=== PATIENT | female | born 1930 | race Caucasian/White ===

== ENCOUNTER 2017-01-08 09:15 | Emergency (ER) | payer OTHER, BC ==
[~2017-01-08] VITALS: Ht 160 cm; Wt 75.0 kg
[~2017-01-08 09:15] MED LIST: ALDACTONE25 MG PO; ARMD EYE SUPPORT PO; CALCIUM 600 MG1 EACH PO; CITRATE OF MAG296 ML PO; CLOPIDOGREL75 MG PO; COUMADIN,JANTOVE2 MG PO; COUMADIN,JANTOVE4 MG PO; COUMADIN4 MG PO; COUMADIN5 MG PO; DAILY VALUE1 EACH PO; DILTIAZEM 24HR180 MG PO; ENDOCET 5-3251 EACH PO; FLEXERIL10 MG PO; FOSAMAX70 MG PO; GUAIFENESIN WI120 M1 PO; LOPRESSOR50 MG PO; LOVENOX80 MG/0.8 SC; MENTHOL TP; METHIMAZOLE5 MG PO; NITROSTAT0.4 MG SL; POLYETHYLENE GL17 GM PO; PRAVASTATIN SOD10 MG PO; PRAVASTATIN SOD40 MG PO; SPIRONOLACTONE25 MG PO; SYSTANE 0.3-0.1 EACH BOTH EYES; TOPROL XL50 MG PO; TRAMADOL HCL50 MG PO; [UNRECOGNIZED DRUG - OTHER]
[2017-01-08 10:15] LABS: HEMATOCRIT 38.1 % (36.0-46.0); MCH 32.2 PG (29.0-34.0); MCHC 33.1 G/DL (30.0-36.0); MCV 97.4 FL (83-99); MEAN PLAT.VOLUME 9.3 uM^3 (9.5-12.4); PLATELET COUNT 260 K/uL (156-360); RBC DIS.WIDTH-CV 13.5 % (11.8-14.6); RBC DIS.WIDTH-SD 48.5 % (39-53); RED BLOOD COUNT 3.91 M/uL (3.80-5.20); WHITE BLOOD COUNT 6.5 K/uL (4.1-10.2)
[2017-01-08 10:25] LABS: CHLORIDE 105 mEq/L (99-109); POTASSIUM 4.7 mEq/L (3.7-5.4); SODIUM 137 mEq/L (136-147)
[2017-01-08 10:26] LABS: PROTHROMBIN TIME 75.3 SEC (10.2-12.9)
[2017-01-08 10:27] LABS: GLUCOSE 102 mg/dL (70-99)
[2017-01-08 10:29] LABS: ANION GAP 8 MEQ/L (2-14)
[2017-01-08 10:31] LABS: GFR ESTIMATE (CALCULATED) 56 mL/min/
[2017-01-08 10:32] LABS: UREA NITROGEN (BUN) 28 mg/dL (9-23)
[2017-01-08 10:37] LABS: INTER. NORMALIZED RATIO 6.3
[2017-01-08 12:42] VITALS: BP 162/64
== END 2017-01-08 12:43 | disposition home or self-care (01) ==
LOC: EME 09:15
PROVIDERS: Emergency Medicine
DX: D68.9 Coagulation defect, unspecified (principal); I48.91 Unspecified atrial fibrillation; Z79.01 Long term (current) use of anticoagulants; R29.6 Repeated falls; I10 Essential (primary) hypertension; E78.5 Hyperlipidemia, unspecified; I25.2 Old myocardial infarction; Z86.73 Personal history of transient ischemic attack (TIA), and cerebral infarction without residual deficits; Z96.642 Presence of left artificial hip joint; Z87.891 Personal history of nicotine dependence; Z88.0 Allergy status to penicillin
CPT/HCPCS: 80048; 85027; 85610; 99281; 99284

== ENCOUNTER 2017-02-20 11:30 | Inpatient (IN) | payer OTHER, BC ==
[~2017-02-20] VITALS: Ht 162.6 cm; Wt 72.0 kg
[~2017-02-20 11:30] MED LIST changes: -COUMADIN5 MG PO; -DILTIAZEM 24HR180 MG PO; +DILTIAZEM 24HR240 MG PO; +WARFARIN SODIUM4 MG PO
[2017-02-20 12:25] LABS: BASOPHIL COUNT 0.1 K/uL (0-0.1); EOSINOPHIL (%) 0.8 % (0-5); EOSINOPHIL COUNT 0.1 K/uL (0-0.3); HEMATOCRIT 41.4 % (36.0-46.0); IMMATURE GRANULOCYTE (%) 0.3 % (0.0-0.7); INSTRUMENT ABS NEUTROPHIL CT 7.4 K/uL; LYMPHOCYTE COUNT 1.6 K/uL (1.0-2.8); MCH 33.6 PG (29.0-34.0); MCHC 33.3 G/DL (30.0-36.0); MCV 100.7 FL (83-99); MEAN PLAT.VOLUME 10.3 uM^3 (9.5-12.4); MONOCYTE (%) 5.9 % (3-12); MONOCYTE COUNT 0.6 K/uL (0-0.8); NEUTROPHIL (%) 76.1 % (45-76); NEUTROPHIL COUNT 7.4 K/uL (1.8-6.4); PLATELET COUNT 249 K/uL (156-360); RBC DIS.WIDTH-SD 52.3 % (39-53); RED BLOOD COUNT 4.11 M/uL (3.80-5.20); WHITE BLOOD COUNT 9.7 K/uL (4.1-10.2)
[2017-02-20 12:30] LABS: INTER. NORMALIZED RATIO 2.6; PROTHROMBIN TIME 29.4 SEC (10.2-12.9)
[2017-02-20 12:33] LABS: PTT 32.2 SEC (25-37)
[2017-02-20 12:40] LABS: CHLORIDE 106 mEq/L (99-109); POTASSIUM 5.1 mEq/L (3.7-5.4); SODIUM 136 mEq/L (136-147)
[2017-02-20 12:42] LABS: GLUCOSE 134 mg/dL (70-99)
[2017-02-20 12:44] LABS: ANION GAP 13 MEQ/L (2-14); TOTAL BILIRUBIN 0.6 mg/dL (0.0-1.0)
[2017-02-20 12:46] LABS: ALKALINE PHOSPHATASE 103 IU/L (3-129); GFR ESTIMATE (CALCULATED) > 59 mL/min/; TROP-I INTERPRETATION NEGATIVE; TROPONIN-I 0.01 ng/mL (0.0-0.30)
[2017-02-20 12:47] LABS: UREA NITROGEN (BUN) 23 mg/dL (9-23)
[2017-02-20 12:56] LABS: DIGOXIN < 0.3 ng/mL (0.8-2.0)
[2017-02-20] MEDS ORDERED: METOPROLOL TART25 MG PO (13:46)
[2017-02-20] MEDS ORDERED: WARFARIN SODIUM1 MG PO (13:49)
[2017-02-20] MEDS ORDERED: TYLENOL EXTRA500 MG PO (13:52)
[2017-02-20] MEDS ORDERED: ASPIR-LOW81 MG PO (13:52)
[2017-02-20] MEDS ORDERED: PRESERVISION T1 EACH PO (13:53)
[2017-02-20 16:44] LABS: TROP-I INTERPRETATION NEGATIVE; TROPONIN-I < 0.01 ng/mL (0.0-0.30)
[2017-02-20 19:45] VITALS: BP 151/75
[2017-02-20 19:47] VITALS: BP 151/75
[2017-02-20 20:36] LABS: TROP-I INTERPRETATION NEGATIVE; TROPONIN-I < 0.01 ng/mL (0.0-0.30)
[2017-02-20 23:55] VITALS: BP 173/72
[2017-02-21 04:00] VITALS: BP 107/59; BP 141/67
[2017-02-21 05:41] LABS: INTER. NORMALIZED RATIO 2.7; PROTHROMBIN TIME 30.9 SEC (10.2-12.9)
[2017-02-21 08:06] VITALS: BP 148/72
[2017-02-21 11:14] VITALS: BP 148/72
[2017-02-21 16:30] VITALS: BP 144/91
[2017-02-21 20:00] VITALS: BP 170/70
[2017-02-21 23:46] VITALS: BP 156/67
[2017-02-22 04:00] VITALS: BP 175/76
[2017-02-22 05:28] LABS: PROTHROMBIN TIME 22.8 SEC (10.2-12.9)
[2017-02-22 05:36] LABS: CHLORIDE 103 mEq/L (99-109); SODIUM 141 mEq/L (136-147)
[2017-02-22 05:37] LABS: GLUCOSE 104 mg/dL (70-99)
[2017-02-22 05:39] LABS: ANION GAP 12 MEQ/L (2-14)
[2017-02-22 05:41] LABS: GFR ESTIMATE (CALCULATED) > 59 mL/min/
[2017-02-22 05:42] LABS: UREA NITROGEN (BUN) 20 mg/dL (9-23)
[2017-02-22 05:47] LABS: BASOPHIL COUNT 0.1 K/uL (0-0.1); EOSINOPHIL (%) 3.1 % (0-5); EOSINOPHIL COUNT 0.2 K/uL (0-0.3); IMMATURE GRANULOCYTE (%) 0.3 % (0.0-0.7); INSTRUMENT ABS NEUTROPHIL CT 4.5 K/uL; LYMPHOCYTE COUNT 2.3 K/uL (1.0-2.8); MCH 33.2 PG (29.0-34.0); MCHC 33.4 G/DL (30.0-36.0); MCV 99.3 FL (83-99); MEAN PLAT.VOLUME 10.6 uM^3 (9.5-12.4); MONOCYTE (%) 8.9 % (3-12); MONOCYTE COUNT 0.7 K/uL (0-0.8); NEUTROPHIL (%) 57.1 % (45-76); NEUTROPHIL COUNT 4.5 K/uL (1.8-6.4); PLATELET COUNT 241 K/uL (156-360); RBC DIS.WIDTH-CV 13.9 % (11.8-14.6); RBC DIS.WIDTH-SD 51.4 % (39-53); RED BLOOD COUNT 4.43 M/uL (3.80-5.20); WHITE BLOOD COUNT 7.8 K/uL (4.1-10.2)
[2017-02-22 08:45] VITALS: BP 185/83
[2017-02-22 12:00] VITALS: BP 142/97
[2017-02-22 16:30] VITALS: BP 147/76
[2017-02-22 20:00] VITALS: BP 153/67
[2017-02-22 23:55] VITALS: BP 111/56
[2017-02-23 04:00] VITALS: BP 136/65
[2017-02-23 05:28] LABS: HEMATOCRIT 43.2 % (36.0-46.0); MCH 32.9 PG (29.0-34.0); MCHC 33.1 G/DL (30.0-36.0); MCV 99.3 FL (83-99); PLATELET COUNT 242 K/uL (156-360); RBC DIS.WIDTH-CV 13.6 % (11.8-14.6); RBC DIS.WIDTH-SD 50.4 % (39-53); RED BLOOD COUNT 4.35 M/uL (3.80-5.20); WHITE BLOOD COUNT 7.5 K/uL (4.1-10.2)
[2017-02-23 05:38] LABS: INTER. NORMALIZED RATIO 1.7; PROTHROMBIN TIME 18.6 SEC (10.2-12.9)
[2017-02-23 05:58] LABS: ANION GAP 10 MEQ/L (2-14); CHLORIDE 104 MEQ/L (99-109); GFR ESTIMATE (CALCULATED) > 59 mL/min/; GLUCOSE 101 mg/dL (70-99); SAMPLE HEMOLYSIS CHECK 0; SAMPLE ICTERIC CHECK 0; SAMPLE LIPEMIA CHECK 0; SODIUM 140 MEQ/L (136-147); UREA NITROGEN (BUN) 20 mg/dL (9-23)
[2017-02-23 06:00] LABS: POTASSIUM 3.9 MEQ/L (3.7-5.4)
[2017-02-23 08:32] VITALS: BP 163/93
[2017-02-23] MEDS ORDERED: LISINOPRIL5 MG PO (09:24)
[2017-02-23] MEDS ORDERED: DILTIAZEM 24HR120 MG PO (09:24)
== END 2017-02-23 11:17 | DRG 293 ==
LOC: EME 11:30 → EDOF 14:10 → 4EAST 14:10 → ENRESERV 14:15 → 4EAST 19:24
PROVIDERS: Emergency Medicine; Hospitalist; Internal Medicine
DX: I11.0 Hypertensive heart disease with heart failure (principal); I50.33 Acute on chronic diastolic (congestive) heart failure; R00.1 Bradycardia, unspecified; T46.1X5A Adverse effect of calcium-channel blockers, initial encounter; T44.7X5A Adverse effect of beta-adrenoreceptor antagonists, initial encounter; I08.1 Rheumatic disorders of both mitral and tricuspid valves; I27.20 Pulmonary hypertension, unspecified; I48.2 Chronic atrial fibrillation; I35.0 Nonrheumatic aortic (valve) stenosis; I25.10 Atherosclerotic heart disease of native coronary artery without angina pectoris; E78.5 Hyperlipidemia, unspecified; Z96.642 Presence of left artificial hip joint; E66.9 Obesity, unspecified; Z68.29 Body mass index [BMI] 29.0-29.9, adult; I25.2 Old myocardial infarction; Z79.01 Long term (current) use of anticoagulants; Z79.82 Long term (current) use of aspirin; Z86.73 Personal history of transient ischemic attack (TIA), and cerebral infarction without residual deficits; Z87.891 Personal history of nicotine dependence
CPT/HCPCS: 71010; 80048; 80053; 80162; 83880; 84443; 84484; 85025; 85027; 85610; 85730; 93005; 93306; 99202; 99281; 99285; J1940

== ENCOUNTER 2017-02-23 10:33 | Inpatient (IN) | payer OTHER, BC ==
[~2017-02-23] VITALS: Ht 162.6 cm; Wt 71.5 kg
[~2017-02-23 10:33] MED LIST changes: +ASPIR-LOW81 MG PO; +DILTIAZEM 24HR120 MG PO; +LISINOPRIL5 MG PO; +METOPROLOL TART25 MG PO; +PRESERVISION T1 EACH PO; +TYLENOL EXTRA500 MG PO; +WARFARIN SODIUM1 MG PO
[2017-02-23 11:30] VITALS: BP 156/74
[2017-02-23 15:27] VITALS: BP 134/66
[2017-02-24 00:14] VITALS: BP 137/65
[2017-02-24 05:02] VITALS: BP 139/77
[2017-02-24 05:24] LABS: HEMATOCRIT 46.3 % (36.0-46.0); MCH 33.8 PG (29.0-34.0); MCHC 33.7 G/DL (30.0-36.0); MCV 100.2 FL (83-99); MEAN PLAT.VOLUME 9.9 uM^3 (9.5-12.4); PLATELET COUNT 253 K/uL (156-360); RBC DIS.WIDTH-CV 13.9 % (11.8-14.6); RBC DIS.WIDTH-SD 50.6 % (39-53); RED BLOOD COUNT 4.62 M/uL (3.80-5.20); WHITE BLOOD COUNT 8.4 K/uL (4.1-10.2)
[2017-02-24 05:29] LABS: INTER. NORMALIZED RATIO 1.7; PROTHROMBIN TIME 18.6 SEC (10.2-12.9)
[2017-02-24 05:48] LABS: ALKALINE PHOSPHATASE 102 IU/L (3-129); ANION GAP 9 MEQ/L (2-14); CHLORIDE 105 MEQ/L (99-109); GFR ESTIMATE (CALCULATED) > 59 mL/min/; GLUCOSE 106 mg/dL (70-99); POTASSIUM 4.3 MEQ/L (3.7-5.4); SAMPLE HEMOLYSIS CHECK 0; SAMPLE ICTERIC CHECK 0; SAMPLE LIPEMIA CHECK 0; SODIUM 141 MEQ/L (136-147); TOTAL BILIRUBIN 0.6 MG/DL (0.0-1.0); UREA NITROGEN (BUN) 20 mg/dL (9-23)
[2017-02-24 15:47] VITALS: BP 174/73
[2017-02-24 17:00] VITALS: BP 135/85
[2017-02-25 05:22] VITALS: BP 169/84
[2017-02-25 07:12] LABS: INTER. NORMALIZED RATIO 1.7; PROTHROMBIN TIME 19.5 SEC (10.2-12.9)
[2017-02-25 12:00] VITALS: BP 210/85
[2017-02-25 12:49] VITALS: BP 190/82
[2017-02-25 14:49] LABS: ANION GAP 8 MEQ/L (2-14); CHLORIDE 106 MEQ/L (99-109); SAMPLE HEMOLYSIS CHECK 0; SAMPLE ICTERIC CHECK 0; SAMPLE LIPEMIA CHECK 0; SODIUM 140 MEQ/L (136-147)
[2017-02-25 14:54] LABS: GFR ESTIMATE (CALCULATED) 56 mL/min/; GLUCOSE 90 mg/dL (70-99); UREA NITROGEN (BUN) 23 mg/dL (9-23)
[2017-02-25 15:23] VITALS: BP 199/90
[2017-02-25 18:07] VITALS: BP 180/75
[2017-02-26 05:19] LABS: INTER. NORMALIZED RATIO 1.8; PROTHROMBIN TIME 20.8 SEC (10.2-12.9)
[2017-02-26 05:51] VITALS: BP 135/88
[2017-02-26 15:26] VITALS: BP 142/77
[2017-02-27 04:51] VITALS: BP 156/70
[2017-02-27 04:58] LABS: PROTHROMBIN TIME 22.5 SEC (10.2-12.9)
[2017-02-27 09:30] VITALS: BP 171/93
[2017-02-27 11:37] VITALS: BP 160/71
[2017-02-27 15:24] VITALS: BP 149/74
[2017-02-28 05:22] VITALS: BP 130/77
[2017-02-28 07:03] LABS: HEMATOCRIT 45.3 % (36.0-46.0); MCH 32.3 PG (29.0-34.0); MCHC 32.5 G/DL (30.0-36.0); MCV 99.6 FL (83-99); PLATELET COUNT 243 K/uL (156-360); RBC DIS.WIDTH-CV 13.6 % (11.8-14.6); RBC DIS.WIDTH-SD 50.3 % (39-53); RED BLOOD COUNT 4.55 M/uL (3.80-5.20); WHITE BLOOD COUNT 8.8 K/uL (4.1-10.2)
[2017-02-28 07:10] LABS: PROTHROMBIN TIME 22.9 SEC (10.2-12.9)
[2017-02-28 07:29] LABS: ANION GAP 10 MEQ/L (2-14); CHLORIDE 103 MEQ/L (99-109); GFR ESTIMATE (CALCULATED) > 59 mL/min/; GLUCOSE 98 mg/dL (70-99); SAMPLE HEMOLYSIS CHECK 0; SAMPLE ICTERIC CHECK 0; SAMPLE LIPEMIA CHECK 0; SODIUM 138 MEQ/L (136-147); UREA NITROGEN (BUN) 22 mg/dL (9-23)
[2017-02-28 09:15] VITALS: BP 134/85
[2017-02-28 15:05] VITALS: BP 140/79
[2017-02-28] MEDS ORDERED: LISINOPRIL20 MG PO (20:11)
[2017-02-28] MEDS ORDERED: HYDROCHLOROTHIA25 MG PO (20:11)
[2017-02-28] MEDS ORDERED: MUCINEX600 MG PO (20:11)
[2017-02-28] MEDS ORDERED: DILTIAZEM 24HR120 MG PO (20:11)
[2017-03-01 04:17] VITALS: BP 114/66
[2017-03-01 06:51] LABS: PROTHROMBIN TIME 22.1 SEC (10.2-12.9)
== END 2017-03-01 13:59 | disposition home health service (06) | DRG 946 ==
LOC: 3WEST 10:33 → ENPENDDIS 02-28 → 3WEST 03-01 13:59
PROVIDERS: Internal Medicine; Nurse Practitioner Family; Physical Medicine & Rehabilitation Pain Medicine
PROC: F07M0ZZ Range of Motion and Joint Mobility Treatment of Musculoskeletal System - Whole Body (ICD-10-PCS; principal; 2017-02-23)
DX: R53.1 Weakness (principal); I50.9 Heart failure, unspecified; I48.2 Chronic atrial fibrillation; I11.0 Hypertensive heart disease with heart failure; I25.10 Atherosclerotic heart disease of native coronary artery without angina pectoris; I35.0 Nonrheumatic aortic (valve) stenosis; H40.9 Unspecified glaucoma; Z87.891 Personal history of nicotine dependence; H35.30 Unspecified macular degeneration; Z79.01 Long term (current) use of anticoagulants
CPT/HCPCS: 71010; 80048; 80053; 85027; 85610; 97110 GO; 97530 GP

== ENCOUNTER 2017-05-01 21:40 | Observation (INO) | payer OTHER, BC ==
[~2017-05-01] VITALS: Ht 162.6 cm; Wt 70.5 kg
[~2017-05-01 21:40] MED LIST changes: -CALCIUM 600 MG1 EACH PO; +CALCIUM600 M1 PO; +HYDROCHLOROTHIA25 MG PO; +LISINOPRIL20 MG PO; +MUCINEX600 MG PO
[2017-05-01 23:14] LABS: HEMATOCRIT 41.2 % (36.0-46.0); MCH 33.5 PG (29.0-34.0); MCHC 34.2 G/DL (30.0-36.0); MCV 97.9 FL (83-99); MEAN PLAT.VOLUME 10.2 uM^3 (9.5-12.4); PLATELET COUNT 224 K/uL (156-360); RBC DIS.WIDTH-CV 13.4 % (11.8-14.6); RBC DIS.WIDTH-SD 49.1 % (39-53); RED BLOOD COUNT 4.21 M/uL (3.80-5.20); WHITE BLOOD COUNT 11.8 K/uL (4.1-10.2)
[2017-05-01 23:19] LABS: PROTHROMBIN TIME 19.8 SEC (10.2-12.9)
[2017-05-01 23:21] LABS: PTT 27.9 SEC (25-37)
[2017-05-01 23:23] LABS: CHLORIDE 104 mEq/L (99-109); POTASSIUM 3.7 mEq/L (3.7-5.4); SODIUM 136 mEq/L (136-147)
[2017-05-01 23:25] LABS: GLUCOSE 135 mg/dL (70-99)
[2017-05-01 23:26] LABS: ANION GAP 10 MEQ/L (2-14)
[2017-05-01 23:27] LABS: TOTAL BILIRUBIN 0.7 mg/dL (0.0-1.0)
[2017-05-01 23:28] LABS: ALKALINE PHOSPHATASE 86 IU/L (3-129)
[2017-05-01 23:29] LABS: GFR ESTIMATE (CALCULATED) 50 mL/min/
[2017-05-01 23:30] LABS: UREA NITROGEN (BUN) 26 mg/dL (9-23)
[2017-05-01 23:32] LABS: LIPASE 8 U/L (1.0-51.0)
[2017-05-01 23:34] LABS: TROP-I INTERPRETATION NEGATIVE; TROPONIN-I < 0.01 ng/mL (0.0-0.30)
[2017-05-01 23:56] LABS: INTER. NORMALIZED RATIO 1.7
[2017-05-02] MEDS ORDERED: LISINOPRIL20 MG PO (00:52)
[2017-05-02] MEDS ORDERED: CARDIZEM CD120 MG PO (00:52)
[2017-05-02] MEDS ORDERED: HYDROCHLOROTHIA25 MG PO (00:53)
[2017-05-02 02:19] LABS: ADD MIUA? YES; BILIRUBIN NEGATIVE; BLOOD NEGATIVE; COLOR YELLOW ((YELLOW)); GLUCOSE (STRIP) NEGATIVE; KETONES NEGATIVE; LEUKOCYTES MODERATE; NITRITE NEGATIVE; PROTEIN (STRIP) NEGATIVE; SPECIFIC GRAVITY 1.011 (1.000-1.030); UROBILINOGEN 0.2 MG/DL (0.2-1.0)
[2017-05-02 02:31] LABS: BACTERIA RARE /HPF; EPITHELIAL CELLS 2+ /HPF; MUCUS TRACE /LPF; UCUL ADDED? YES; UNCLASSIFIED CRYSTALS 1+ /HPF; WHITE BLOOD CELLS 20-30 /HPF (0-5)
[2017-05-02 03:27] VITALS: BP 112/58
[2017-05-02 05:20] LABS: INTER. NORMALIZED RATIO 1.9; PROTHROMBIN TIME 21.7 SEC (10.2-12.9)
[2017-05-02 05:23] LABS: HEMATOCRIT 37.5 % (36.0-46.0); MCH 32.5 PG (29.0-34.0); MCHC 33.1 G/DL (30.0-36.0); MCV 98.2 FL (83-99); MEAN PLAT.VOLUME 10.3 uM^3 (9.5-12.4); PLATELET COUNT 221 K/uL (156-360); RBC DIS.WIDTH-CV 13.5 % (11.8-14.6); RBC DIS.WIDTH-SD 48.9 % (39-53); RED BLOOD COUNT 3.82 M/uL (3.80-5.20); WHITE BLOOD COUNT 8.2 K/uL (4.1-10.2)
[2017-05-02 05:43] LABS: ALKALINE PHOSPHATASE 73 IU/L (3-129); ANION GAP 8 MEQ/L (2-14); CHLORIDE 104 MEQ/L (99-109); GFR ESTIMATE (CALCULATED) 50 mL/min/; GLUCOSE 120 mg/dL (70-99); POTASSIUM 3.8 MEQ/L (3.7-5.4); SAMPLE HEMOLYSIS CHECK 0; SAMPLE ICTERIC CHECK 0; SAMPLE LIPEMIA CHECK 0; SODIUM 139 MEQ/L (136-147); TOTAL BILIRUBIN 0.5 MG/DL (0.0-1.0); UREA NITROGEN (BUN) 27 mg/dL (9-23)
[2017-05-02 06:07] LABS: TROP-I INTERPRETATION NEGATIVE; TROPONIN-I < 0.01 ng/mL (0.0-0.30)
[2017-05-02 07:47] VITALS: BP 148/69
[2017-05-02 11:40] VITALS: BP 138/66
[2017-05-02 13:59] LABS: TROP-I INTERPRETATION NEGATIVE; TROPONIN-I < 0.01 ng/mL (0.0-0.30)
[2017-05-02 16:09] VITALS: BP 149/64
[2017-05-02 19:45] VITALS: BP 148/71
[2017-05-02 23:44] VITALS: BP 151/80
[2017-05-03 04:50] VITALS: BP 148/72
[2017-05-03 05:45] LABS: INTER. NORMALIZED RATIO 1.8; PROTHROMBIN TIME 20.8 SEC (10.2-12.9)
[2017-05-03 08:15] VITALS: BP 145/74
[2017-05-03] MEDS ORDERED: ZITHROMAX500 MG PO (11:15)
[2017-05-03] MEDS ORDERED: LISINOPRIL20 MG PO (11:15)
== END 2017-05-03 12:16 | disposition home or self-care (01) ==
LOC: EME → EDBD 21:40 → EDOF 05-02 01:51 → ENRESERV 05-02 01:52 → 5WEST 05-02 03:05
PROVIDERS: Emergency Medicine; Internal Medicine
DX: R53.1 Weakness (principal); I95.9 Hypotension, unspecified; I48.2 Chronic atrial fibrillation; J01.90 Acute sinusitis, unspecified; N39.0 Urinary tract infection, site not specified; E86.1 Hypovolemia; R19.7 Diarrhea, unspecified; R79.1 Abnormal coagulation profile; I35.0 Nonrheumatic aortic (valve) stenosis; I25.10 Atherosclerotic heart disease of native coronary artery without angina pectoris; I25.2 Old myocardial infarction; E03.9 Hypothyroidism, unspecified; E05.90 Thyrotoxicosis, unspecified without thyrotoxic crisis or storm; E78.5 Hyperlipidemia, unspecified; Z86.73 Personal history of transient ischemic attack (TIA), and cerebral infarction without residual deficits; I10 Essential (primary) hypertension; Z79.01 Long term (current) use of anticoagulants; Z88.0 Allergy status to penicillin; Z91.041 Radiographic dye allergy status; Z87.891 Personal history of nicotine dependence
CPT/HCPCS: 70450; 70551; 71020; 80053; 81003; 83690; 83880; 84484; 85027; 85610; 85730; 87086; 93005; 99281; 99285; G0378; G8978 GP CH; G8979 GP CH; G8980 GP CH; G8987 GO CH; G8988 GO CH; G8989 GO CH; J1650; J1956; J7030